=== PATIENT | female | born 1955 | race Caucasian/White ===

== ENCOUNTER 2024-04-23 12:29 | Outpatient (CLI) | payer MEDICARE ==
[~2024-04-23 12:29] MED LIST: AMI200T PO; ATOR20TA66 PO; COR3.125T PO; NO HOME MEDS
[2024-04-23 13:22] VITALS: PULSE 46; RESP 16; O2SAT 98
== END 2024-04-23 23:59 | disposition home or self-care (01) ==
LOC: RAD 12:29
PROVIDERS: ATTEND Physician Assistant
DX: Z12.2 Encounter for screening for malignant neoplasm of respiratory organs (principal); J44.9 Chronic obstructive pulmonary disease, unspecified; I10 Essential (primary) hypertension; R94.2 Abnormal results of pulmonary function studies
CPT/HCPCS: 71271; 94010; 94760

== ENCOUNTER 2024-07-22 14:38 | Outpatient (CLI) | payer MEDICARE ==
[~2024-07-22 14:38] MED LIST changes: +CARV3.1232 PO; -COR3.125T PO
[2024-07-22 15:51] VITALS: PULSE 57; RESP 16; O2SAT 98
== END 2024-07-22 23:59 | disposition home or self-care (01) ==
LOC: RT 14:38
PROVIDERS: ATTEND Physician Assistant
DX: J44.9 Chronic obstructive pulmonary disease, unspecified (principal)
CPT/HCPCS: 94010; 94727; 94729; 94760